=== PATIENT | female | born 1975 | race Caucasian/White ===

== ENCOUNTER 2018-06-29 15:32 | Emergency (ER) | payer MEDICAID ==
[~2018-06-29] VITALS: Ht 170.2 cm; Wt 158.8 kg
[2018-06-29 15:55] VITALS: BP 146/87
== END 2018-06-29 17:12 | disposition home or self-care (01) ==
LOC: ER 15:32
DX: S60.222A Contusion of left hand, initial encounter (principal); I10 Essential (primary) hypertension; W22.8XXA Striking against or struck by other objects, initial encounter; Y93.89 Activity, other specified; Y99.8 Other external cause status; Y92.89 Other specified places as the place of occurrence of the external cause
CPT/HCPCS: 73110; 73130

== ENCOUNTER 2020-05-10 14:19 | Emergency (ER) | payer MEDICAID ==
[~2020-05-10] VITALS: Ht 170.2 cm; Wt 108.9 kg
[2020-05-10 14:59] VITALS: BP 98/60
== END 2020-05-10 15:57 | disposition home or self-care (01) ==
LOC: ER 14:19
DX: R22.42 Localized swelling, mass and lump, left lower limb (principal); M79.605 Pain in left leg; I10 Essential (primary) hypertension; Z98.84 Bariatric surgery status; Z96.642 Presence of left artificial hip joint
CPT/HCPCS: 93971

== ENCOUNTER 2024-03-19 10:46 | Emergency (ER) | payer MEDICAID ==
[~2024-03-19] VITALS: Ht 170.2 cm; Wt 115.4 kg
[2024-03-19 11:42] LABS: Basophils # (auto) 0 10 ^3/uL (0-0.2); Basophils % (auto) 0.9 % (0.0-2.0); Eosinophils # (auto) 0.1 10 ^3/uL (0-0.8); Eosinophils % (auto) 1.1 % (0.0-7.0); Hematocrit 28.8 % (36.0-46.0); Hemoglobin 8.6 g/dL (12.2-16.2); Lymphocytes # (auto) 1.5 10 ^3/uL (0.4-5.4); Lymphocytes % (auto) 30.2 % (10.0-50.0); Mean Corpuscular Hemoglobin 18.5 pg (28.0-32.0); Mean Corpuscular Hgb Conc. 29.9 g/dL (32.0-36.0); Mean Corpuscular Volume 61.8 fL (80.0-100.0); Monocytes # (auto) 0.3 10 ^3/uL (0-1.3); Neutrophils % (auto) 61.8 % (37.0-80.0); Nucleated Red Blood Cells % 0.1 %; Red Blood Cells 4.65 10^6/uL (4.0-5.20); White Blood Cell 4.8 10^3/uL (4.4-10.8)
[2024-03-19 11:46] LABS: Red Cell Distribution Width 20.7 % (11.8-14.3)
[2024-03-19 11:54] LABS: Alanine Aminotransferase 25 U/L (7-40); Alkaline Phosphatase 81 U/L (46-116); Anion Gap 4 (5-15); Aspartate Aminotransferase 21 U/L (13-40); BUN/Creatinine Ratio 21.7 (10.0-20.0); Blood Urea Nitrogen 13 mg/dL (9-23); CRP High Sensitivity < 0.02 mg/dL (<1.0); Calcium 9.1 mg/dL (8.5-10.1); Carbon Dioxide 27 mmol/L (20-30); Chloride 110 mmol/L (98-107); Glucose 115 mg/dL (74-106); Potassium 4.1 mmol/L (3.5-5.1); Sodium 141 mmol/L (136-145)
[2024-03-19 11:55] LABS: Albumin 3.9 g/dL (3.2-4.8); Bilirubin, Total 0.6 mg/dL (0.2-1.0); Total Protein 6.2 g/dL (5.7-8.2)
[2024-03-19] MEDS ORDERED: FUROSEMIDE 20 MG TAB PO ONE (12:30)
[2024-03-19 12:41] LABS: Erythrocyte Sedimentation Rate 13 mm/hr (0-20)
[2024-03-19] MEDS: FUROSEMIDE 40 MG TAB PO ONE (12:57)
[2024-03-19 13:05] VITALS: BP 145/77; PULSE 86; RESP 16; TEMP 98.7; O2SAT 99
== END 2024-03-19 13:06 | disposition home or self-care (01) ==
LOC: ER 10:46
DX: M79.604 Pain in right leg (principal); R60.0 Localized edema; D64.9 Anemia, unspecified; M19.90 Unspecified osteoarthritis, unspecified site; I10 Essential (primary) hypertension
CPT/HCPCS: 36415; 80053; 83605; 83880; 84484; 85025; 85652; 86141; 93971